=== PATIENT | female | born 1975 | race Caucasian/White ===

== ENCOUNTER → 2018-03-31 | Outpatient (CLI) | payer BC | LOC: FIMAGING 13:57 → EDSTATUS 14:00 | PROVIDERS: ATTEND Family Medicine | DX: R07.89 Other chest pain (principal) ==

== ENCOUNTER → 2019-02-16 | Outpatient (CLI) | payer BC | LOC: BMCIMAGING 12:05 | PROVIDERS: ATTEND Physician Assistant | DX: S93.401A Sprain of unspecified ligament of right ankle, initial encounter (principal); X50.0XXA Overexertion from strenuous movement or load, initial encounter ==